=== PATIENT | male | born 1970 | race Caucasian/White ===

== ENCOUNTER 2020-05-04 06:52 | Emergency (ER) | payer OTHER ==
[~2020-05-04] VITALS: Ht 175.3 cm; Wt 72.6 kg
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
--- NOTE | 2020-05-04 08:52 | NUR ---
Patient discharged to home in stable condition. Written and verbal after care instructions given. Patient verbalizes understanding of instruction.
[2020-05-04 08:53] VITALS: BP 121/84
== END 2020-05-04 08:54 | disposition home or self-care (01) ==
LOC: ER 06:58
DX: S02.69XA Fracture of mandible of other specified site, initial encounter for closed fracture (principal); S62.337A Displaced fracture of neck of fifth metacarpal bone, left hand, initial encounter for closed fracture; S00.83XA Contusion of other part of head, initial encounter; R51.9 Headache, unspecified; R42 Dizziness and giddiness; V19.9XXA Pedal cyclist (driver) (passenger) injured in unspecified traffic accident, initial encounter; Y93.89 Activity, other specified; Y92.89 Other specified places as the place of occurrence of the external cause; Y99.8 Other external cause status
CPT/HCPCS: 70450-TC; 70486-TC; 72125-TC; 73130-TC